=== PATIENT | male | born 1965 | race Two or more races ===

== ENCOUNTER → 2024-02-27 | Outpatient (BNVA) | payer MEDICAID, SELFPAY | END | disposition home or self-care (01) | PROVIDERS: PCP Nurse Practitioner Family; Referring Provider Nurse Practitioner Family; Visit Provider Nurse Practitioner Family | DX: E66.9 Obesity, unspecified (principal); Z68.38 Body mass index [BMI] 38.0-38.9, adult; Z13.220 Encounter for screening for lipoid disorders; Z76.89 Persons encountering health services in other specified circumstances; Z13.1 Encounter for screening for diabetes mellitus; Z11.3 Encounter for screening for infections with a predominantly sexual mode of transmission | CPT/HCPCS: 82270; 90471; 90686; 96372; 99215 ==

== ENCOUNTER → 2024-03-06 | Outpatient (BNVA) | payer MEDICAID, SELFPAY | END | disposition home or self-care (01) | PROVIDERS: PCP Nurse Practitioner Family; Referring Provider Nurse Practitioner Family; Visit Provider Nurse Practitioner Family | DX: Z00.01 Encounter for general adult medical examination with abnormal findings (principal); Z91.199 Patient's noncompliance with other medical treatment and regimen due to unspecified reason; F10.10 Alcohol abuse, uncomplicated; Z11.3 Encounter for screening for infections with a predominantly sexual mode of transmission; E66.9 Obesity, unspecified; Z68.38 Body mass index [BMI] 38.0-38.9, adult; Z13.1 Encounter for screening for diabetes mellitus; Z13.220 Encounter for screening for lipoid disorders; K02.9 Dental caries, unspecified | CPT/HCPCS: 99215 ==

== ENCOUNTER → 2024-03-20 | Outpatient (BNVA) | payer MEDICAID, SELFPAY | END | disposition home or self-care (01) | PROVIDERS: PCP Nurse Practitioner Family; Referring Provider Nurse Practitioner Family; Visit Provider Nurse Practitioner Family | DX: Z71.2 Person consulting for explanation of examination or test findings (principal); F10.10 Alcohol abuse, uncomplicated; R73.03 Prediabetes; Z11.59 Encounter for screening for other viral diseases; R79.9 Abnormal finding of blood chemistry, unspecified | CPT/HCPCS: 99214 ==

== ENCOUNTER → 2024-04-03 | Outpatient (BNVA) | payer MEDICAID, SELFPAY | END | disposition home or self-care (01) | PROVIDERS: PCP Nurse Practitioner Family; Referring Provider Nurse Practitioner Family; Visit Provider Nurse Practitioner Family | DX: Z71.2 Person consulting for explanation of examination or test findings (principal); B16.9 Acute hepatitis B without delta-agent and without hepatic coma; D75.839 Thrombocytosis, unspecified; K29.60 Other gastritis without bleeding | CPT/HCPCS: 99213 ==

== ENCOUNTER → 2024-04-11 | Outpatient (BNVA) | payer MEDICAID, SELFPAY | END | disposition home or self-care (01) | PROVIDERS: PCP Nurse Practitioner Family; Referring Provider Nurse Practitioner Family; Visit Provider Nurse Practitioner Family | DX: H26.9 Unspecified cataract (principal) | CPT/HCPCS: 99214 ==

== ENCOUNTER → 2024-10-03 | Outpatient (BNVA) | payer MEDICAID, SELFPAY | END | disposition home or self-care (01) | PROVIDERS: PCP Nurse Practitioner Family; Referring Provider Nurse Practitioner Family; Visit Provider Nurse Practitioner Family | DX: B16.0 Acute hepatitis B with delta-agent with hepatic coma (principal); R73.03 Prediabetes; E55.9 Vitamin D deficiency, unspecified | CPT/HCPCS: 99214 ==

== ENCOUNTER → 2024-10-10 | Outpatient (BNVA) | payer MEDICAID, SELFPAY | END | disposition home or self-care (01) | PROVIDERS: PCP Nurse Practitioner Family; Referring Provider Nurse Practitioner Family; Visit Provider Nurse Practitioner Family | DX: Z71.2 Person consulting for explanation of examination or test findings (principal); R94.5 Abnormal results of liver function studies; E87.5 Hyperkalemia; B16.0 Acute hepatitis B with delta-agent with hepatic coma; R73.03 Prediabetes | CPT/HCPCS: 99212; G0463 ==

== ENCOUNTER → 2024-10-17 | Outpatient (BNVA) | payer MEDICAID, SELFPAY | END | disposition home or self-care (01) | PROVIDERS: PCP Nurse Practitioner Family; Referring Provider Nurse Practitioner Family; Visit Provider Nurse Practitioner Family | DX: R74.8 Abnormal levels of other serum enzymes (principal); E87.5 Hyperkalemia; E66.9 Obesity, unspecified ==

== ENCOUNTER → 2024-10-24 | Outpatient (BNVA) | payer MEDICAID, SELFPAY | END | disposition home or self-care (01) | PROVIDERS: PCP Nurse Practitioner Family; Referring Provider Nurse Practitioner Family; Visit Provider Nurse Practitioner Family | DX: Z71.2 Person consulting for explanation of examination or test findings (principal); E87.5 Hyperkalemia; R94.5 Abnormal results of liver function studies | CPT/HCPCS: 99212; G0463 ==

== ENCOUNTER → 2024-10-28 | Outpatient (BNVA) | payer MEDICAID, SELFPAY | END | disposition home or self-care (01) | PROVIDERS: PCP Nurse Practitioner Family; Referring Provider Nurse Practitioner Family; Visit Provider Nurse Practitioner Family | DX: R74.8 Abnormal levels of other serum enzymes (principal) ==

== ENCOUNTER → 2024-10-29 | Outpatient (BNVA) | payer MEDICAID, SELFPAY | END | disposition home or self-care (01) | PROVIDERS: PCP Nurse Practitioner Family; Referring Provider Nurse Practitioner Family; Visit Provider Nurse Practitioner Family | DX: Z71.2 Person consulting for explanation of examination or test findings (principal); E87.5 Hyperkalemia; R94.5 Abnormal results of liver function studies | CPT/HCPCS: 99212; G0463 ==

== ENCOUNTER → 2024-12-26 | Outpatient (BNVA) | payer MEDICAID, SELFPAY | END | disposition home or self-care (01) | PROVIDERS: PCP Nurse Practitioner Family; Referring Provider Nurse Practitioner Family; Visit Provider Nurse Practitioner Family | DX: Z12.11 Encounter for screening for malignant neoplasm of colon (principal); R10.11 Right upper quadrant pain; H26.9 Unspecified cataract | CPT/HCPCS: 99214 ==

== ENCOUNTER → 2025-01-23 | Outpatient (BNVA) | payer MEDICAID, SELFPAY | END | disposition home or self-care (01) | PROVIDERS: PCP Nurse Practitioner Primary Care; Referring Provider Nurse Practitioner Primary Care; Visit Provider Nurse Practitioner Primary Care | DX: Z71.2 Person consulting for explanation of examination or test findings (principal); R94.5 Abnormal results of liver function studies | CPT/HCPCS: 99212; G0463 ==

== ENCOUNTER → 2025-01-31 | Outpatient (BNVA) | payer MEDICAID, SELFPAY | END | disposition home or self-care (01) | PROVIDERS: PCP Nurse Practitioner Family; Referring Provider Nurse Practitioner Family; Visit Provider Nurse Practitioner Family | DX: S05.02XA Injury of conjunctiva and corneal abrasion without foreign body, left eye, initial encounter (principal); W22.8XXA Striking against or struck by other objects, initial encounter; Y93.H2 Activity, gardening and landscaping | CPT/HCPCS: 99214; A9270 ==

== ENCOUNTER 2025-02-01 10:44 | Emergency (ER) | payer SELFPAY ==
[2025-02-01 11:21] VITALS: BP 153/81; PULSE 60; RESP 19; TEMP 36.6; O2SAT 96; BMI 34.8
[2025-02-01] MEDS: TETRACAINE PF OP SOL 0.5% 4 ML DRPETTE 1 DROP LEFT EYE (12:13)
[2025-02-01] MEDS: FLUORESCEIN SOD 1 MG STRP LEFT EYE (12:13)
--- NOTE | 2025-02-01 12:58 | PD.EDEYE ---
ED Eye Problem RME/HPI General Chief complaint: Eye Problems Stated complaint: Left eye redness X 3 days Time Seen by Provider: 02/01/25 10:56 Arrival date/time: 02/01/25 10:44 This is a 59 year old male with redness to left eye for the past 3 days. Pt was seen by primary provider at [facility] yesterday and was prescribed eye drops. Related Data Home Medications ?Medication ?Instructions ?Recorded ?Confirmed tenofovir disoproxil fumarate 300 300 mg PO QDAY 01/23/25 01/31/25 mg tablet Previous Rx's ?Medication ?Instructions ?Recorded erythromycin 5 mg/gram (0.5 %) eye 1 applic ophthalmic (eye) Q6H 7 01/31/25 ointment days #3.5 grams Allergies Allergy/AdvReac Type Severity Reaction Status Date / Time No Known Allergies Allergy Verified 02/01/25 10:49 Review of Systems Review of Systems Systems Reviewed: All systems reviewed, normal except as documented Past Medical History Past Medical History CARDIAC: Negative Congestive Heart Failure RESPIRATORY: Negative Chronic Obstructive Pulmonary Disease (COPD) GENITOURINARY: Negative Renal Disease ENDOCRINE: Negative Diabetes Mellitus Type 1 or Diabetes Mellitus Type 2 Social History SMOKING STATUS: Never smoker Travel History EBOLA RISK: No ED Exam Narrative Physical exam: VITAL SIGNS: Reviewed. GENERAL APPEARANCE: Alert and interactive, follows commands, no acute distress HEAD AND FACE: Non-traumatic. left eye conjunctiva looks erythemic ENT: PERRL, conjuctiva erythemic, Mucous membrane moist. NECK: Supple, nontender, no nuchal rigidity. CHEST: No tenderness, no crepitus, no paradoxical movement, no retractions. LUNGS: breathing even and unlabored HEART: Regular rate, cap refill less than 2 seconds ABDOMEN: Soft NEUROLOGICAL: Gross motor function intact sensory function intact, Appropriate for age. MUSCULOSKELETAL: low back nontender, full range of motion. EXTREMITIES: No redness no swelling no skin breakdown on bilateral foot and leg. Distal neurovascular status intact bilateral foot SKIN: Color pink, dry, no rash, no lacerations, no abrasions, no contusions. Course Quality Measures none Orders Category Date Time Status Subramanian Lamp to Bedside X1 Care 02/01/25 11:58 Completed Fluorescein Sodium [Bio-Deirdre] Med 02/01/25 11:58 Discontinued 1 mg LEFT EYE X1 ONE TETRACAINE Op Cecy 0.5% [Pontocaine Op Cecy 0.5%] Med 02/01/25 11:58 Discontinued 1 drop LEFT EYE X1 ONE Vital Signs Vital signs: Vital Signs Temperature 97.8 F 02/01/25 11:21 Pulse Rate 60 02/01/25 11:21 Respiratory Rate 19 02/01/25 11:21 Blood Pressure 153/81 H 02/01/25 11:21 Pulse Oximetry (%) 96 02/01/25 11:21 Oxygen Delivery Method Room Air 02/01/25 11:21 PROCEDURES: Subramanian Lamp Exam Left eye: Flourescein uptake:: Yes Subramanian Lamp Findings: Corneal abrasion (minor 3 o clock position close to iris but not on iris on conjuctiva ) Eye MDM Narrative MDM Narrative:: Pt has a (minor 3 o clock position close to iris but not on iris on conjuctiva ) Pt was already given medication for this in clinic yesterday. Pt reports o change in visual acuity. Pt told to make an appointment with eye doctor. Pt verbalized understanding and feels comfortable with plan of care. Patient data External records reviewed:: [facility] previous records Clinical information provided by:: patient Social determinants that could affect healthcare access:: none Patient has the following chronic illnesses:: none How is presenting disease/condition affected by chronic disease/condition?: no chronic disease Evaluation data The following diagnostics were reviewed and interpreted by me:: other (specify) (none ) Lab and/or radiology exams considered but not ordered:: none Interpretation Summary: see note Medications / Prescriptions Medications or Prescriptions considered but not ordered:: none Medication administrations:: Medication Administration History Discontinued Medications Fluorescein Sodium (Fluorescein Sod 1 Mg Strp) 1 mg LEFT EYE X1 ONE Stop: 02/01/25 11:59 Last Admin: 02/01/25 12:13 Dose: 1 mg Documented By: MYRNA Comments: used by provider Tetracaine HCl (Tetracaine Pf Op Cecy 0.5% 4 Ml Drpette) 1 drop LEFT EYE X1 ONE Stop: 02/01/25 11:59 Last Admin: 02/01/25 12:13 Dose: 1 drop Documented By: MYRNA Comments: administered by provider see mar Consultations Consultation(s) initiated? (list below): No Diagnosis Eye Problem Differential Diagnosis: corneal abrasion, conjunctivitis, subconjunctival hemorrhage and corneal ulcer Most likely diagnosis given after review of the tests above:: corneala abrasion Admission Indicated Admission indicated?: not indicated Admission Request Was there a request for admission?: No Disposition Plan Disposition Plan: Discharge Discharge Attestation Discharge Attestation: The patient and all family members were given an opportunity to ask questions and understood the discharge instructions. Discharge instructions specifically effects, indications for sooner follow up or return to the emergency department, and the expected course of current diagnosis. Patient condition: Stable Discharge Plan Plan Patient Disposition: HOME (Self Care) Patient condition on transfer: Stable Prescriptions/Referrals Prescriptions/Med Rec: No Action erythromycin 5 mg/gram (0.5 %) ointment 1 applic ophthalmic (eye) Q6H 7 Days Qty: 3.5 1RF tenofovir disoproxil fumarate 300 mg tablet 300 mg PO QDAY Problem List Clinical Impression: Conjunctivitis, Cornea abrasion Patient/Caregiver Discharge Instructions Discharge Activity: activity as tolerated Education Materials: ED Corneal Abrasion Additional Instructions: Yoselin un akhil con [facility] en las proximas 24-48 horas. Regrese a la candido de emergencias si hay evidencia de que los signos o sintomas empeoran. Continue using ointment given by primary doctor. Print Language: Portuguese Stand Alone Forms: [facility] Award Info., Patient Portal Info Letter BHAVYA/STEVEN Supervising Physician ELZA Supervising Physician: edil
== END 2025-02-01 13:07 | disposition home or self-care (01) ==
PROVIDERS: Emergency Provider Emergency Medicine
DX: S05.02XA Injury of conjunctiva and corneal abrasion without foreign body, left eye, initial encounter (principal); H10.9 Unspecified conjunctivitis; X58.XXXA Exposure to other specified factors, initial encounter
CPT/HCPCS: 99281